=== PATIENT | female | born 1945 | race Caucasian/White ===

== ENCOUNTER 2017-01-17 18:12 | Emergency (ER) | payer MEDICARE ==
[2017-01-17 15:16] LABS: BASOPHILS 0.4 %; BASOPHILS ABSOLUTE 0.07 10/3/uL (0.0-0.16); EOSINOPHILS ABSOLUTE 0.16 10/3/uL (0.0-0.53); HEMATOCRIT 40.3 % (36.0-48.0); HEMOGLOBIN 13.4 g/dL (12.0-16.0); IMMATURE GRANULOCYTES 0.3 %; IMMATURE GRANULOCYTES ABSOLUTE 0.05 10/3/uL (0.0-0.11); LYMPHOCYTES ABSOLUTE 1.59 10/3/uL (0.67-4.30); MEAN CORPUS HGB CONC 33.3 g/dL (32.0-36.0); MEAN CORPUSCULAR HEMOGLOB 31.3 pg (26.0-34.0); MEAN CORPUSCULAR VOLUME 94.2 fL (80-100); MONOCYTES 6.5 %; MONOCYTES ABSOLUTE 1.03 10/3/uL (0.21-1.20); NEUTROPHILS 81.8 %; NEUTROPHILS ABSOLUTE 12.99 10/3/uL (2.02-8.40); PLATELET COUNT 259 10/3/uL (150-400); RBC DISTRIBUTION WIDTH 13.3 % (12.0-16.0); RED CELL COUNT 4.28 10/6/uL (4.0-5.6)
[2017-01-17 15:17] LABS: MANUAL DIFF NO %; WHITE BLOOD CELLS 15.9 10/3/uL (4.5-10.5)
[2017-01-17 15:20] LABS: ASCORBIC ACID (UR NOT ORDER) NEG (NEG); BILIRUBIN, URINE NEGATIVE (NEG); ER URINALYSIS TAT 0 Hrs 09 Mins; KETONE, URINE NEGATIVE (NEG); LEUKOCYTE ESTERASE(NOT OR NEG (NEG); NITRITE (URINE) NEG (NEG); WBC (NOT ORDERED) (RFLEX) 1 (0-5)
[2017-01-17 15:24] LABS: PROTIME (NOT ORD) 12.6 SEC (12.0-14.5)
[2017-01-17 15:33] LABS: CALCIUM, SERUM 10.1 MG/DL (8.5-10.4); CHEST PAIN PROFILE TAT 0 Hrs 22 Mins; CHLORIDE, SERUM 98 MMOL/L (96-112); CO2 (CARBON DIOXIDE) 31 MMOL/L (24-34); CREATININE 1.01 MG/DL (0.55-1.02); GFR AFRICAN AMERICAN 64 ML/MIN (>=60); GFR NON AFRICAN AMERICAN 55 ML/MIN (>=60); GLUCOSE, SERUM 93 MG/DL (60-99); POTASSIUM, SERUM 4.3 MMOL/L (3.5-5.3); SODIUM, SERUM 136 MMOL/L (135-148); TROPONIN I <0.02 NG/ML (<0.05)
[2017-01-17 15:34] LABS: BUN (BLOOD UREA NITROGEN) 20 MG/DL (6-23)
[~2017-01-17 18:12] MED LIST: BISR PR; CALTRA600D PO; CLARIT10 PO; CYMBALTA20 PO; FLAG500TAB PO; HEMOCYTET PO; I10 PO; IMITREX50 PO; KLOR-CON 1010 MEQ PO; LIDODERM T; LIOR10 PO; MAALOX PO; MAGOX4 PO; MIRALAXPKT PO; MOMUD PO; NEUR100 PO; NEUR300 PO; NEUR400 PO; NITROSTAT0.4 MG SL; NOR10 PO; OS250 PO; PERCOCET1 TA4 PO; PHENERGAN 2525 MG/ML IM; PR25 PO; TYLENOL ARTH650 MG PO; VITAMIN B-121000 MC1 SL; VITAMIN D400 UNI1 PO; VIVELLE0.05 MG TD; ZOFRAN4 PO
== END 2017-01-17 18:16 | disposition home or self-care (01) ==
LOC: ER 18:12
PROVIDERS: Emergency Medicine
DX: R55 Syncope and collapse (principal); Z88.1 Allergy status to other antibiotic agents; Z88.0 Allergy status to penicillin; Z88.5 Allergy status to narcotic agent; Z88.8 Allergy status to other drugs, medicaments and biological substances; Z79.899 Other long term (current) drug therapy
CPT/HCPCS: 71020; 80048; 81001; 83735; 84484; 85025; 85610; 85730; 93005; 99285